=== PATIENT | male | born 1955 | race Caucasian/White ===

== ENCOUNTER 2024-11-22 19:10 | Emergency (ER) | payer MEDICARE, OTHER, SELFPAY ==
[2024-11-22 19:12] VITALS: BP 169/86
--- NOTE | 2024-11-22 21:40 | ED.GENMED ---
History of Present Illness
General
Chief Complaint: DVT/Possible Blood Clot
Time Seen by Provider: 11/22/24 21:35
History of Present Illness
History of Present Illness:
69-year-old male presents the emergency department for evaluation of gradually worsening right leg cramping and swelling for the past several days. Pain is described as achy, not worse with exertion. Denies any recent surgeries or prolonged
immobilization but does admit to being very sedentary for the past several months. He did have a short car trip to [place]. Lasting approximately 2 hours a few weeks ago. Denies any chest pain or shortness of breath. No prior history of DVT
Review of Systems
Review of Systems
Allergies reviewed?: Yes
All Other Systems: ROS reviewed and negative except as documented in HPI and ROS
Phy Exam
Physical Exam
Physical Exam:
GEN: Well appearing, NAD, WDWN
HEENT: Oral mucosa moist, no scleral icterus
Cardiac: Regular rate
Lung: No respiratory distress, no tachypnea
MSK: Severe edema of the entire right lower extremity, dorsalis pedis and posterior tibialis pulses are palpable, capillary refill is less than 2 seconds and sensation to the entire lower extremity is intact
Skin: Good color, no pallor or jaundice, no rashes
Neuro: AO x3, moves all extremities freely
Psych: Calm, cooperative
Course
Orders/Labs/Results
Orders:
Orders
11/22/24 19:17
US Periph Venous LOWER Ext RT Urgent
Comment:
Reason For Exam: pain, swelling
11/22/24 22:18
Apixaban [Eliquis] 10 mg PO NOW STA
11/22/24 22:43
Complete Blood Count/With Diff Urgent
Comprehensive Metabolic Panel Urgent
Abnormal Lab Results
11/22/24
22:43
MCH 32.0 H pg
(27.0-31.0)
Absolute Monos (auto) 0.7 H 10^3/uL
(0.1-0.6)
BUN 24 H mg/dl
(9-20)
Glucose 103 H mg/dl
(70-99)
Total Bilirubin 1.4 H mg/dl
(0.2-1.3)
11/22/24 22:43
11/22/24 22:43
Vital Signs
Initial and Last Documented VS:
Initial Vital Signs
Temp Pulse Resp BP Pulse Ox
97.9 F 82 16 169/86 95
11/22/24 19:12 11/22/24 19:12 11/22/24 19:12 11/22/24 19:12 11/22/24 19:12
Last Documented Vital Signs
Temp Pulse Resp BP Pulse Ox
97.9 F 89 18 152/88 91
11/22/24 19:12 11/22/24 23:30 11/22/24 23:30 11/22/24 23:30 11/22/24 23:30
MDM/Problems Addressed
MDM/Problems Addressed:
Labs are normal. Ultrasound reveals an extensive DVT progressing all the way up to the common femoral. No evidence of phlegmasia cerulea dolens. Start the patient on anticoagulants, counseled on precautions with anticoagulant use, recommend close
primary care follow-up, Provided with information for outpatient family medicine residency clinic
*Critical Care Note
Total Time (30-74mins, 75-104mins- exclusive of procedures): Not Applicable
ED Attending Note
-
Portions of this chart may have been created with voice recognition software.� Occasional wrong word or��sound alike� substitutions may have occurred due to the inherent limitations of voice recognition software.
Discharge Plan
Departure
Patient Disposition: Home (Routine Discharge)
Date of Disposition: 11/22/24
Time of Disposition: 23:11
Patient with high blood pressure during this ER visit?: Yes
Discharge Problem:
Deep vein thrombosis (DVT) of right lower extremity
Instructions: Deep Vein Thrombosis (Blood Clots in the Legs) (DC), How to take anticoagulants safely
Prescriptions:
New
Eliquis 5 mg tablet
5 mg PO BID Qty: 74 0RF
Rx Instructions:
10mg PO BID x 7d then 5mg PO BID
Referrals:
NONE,* [Family Provider] -
Activity Restrictions/Additional Instructions:
[facility]
[address]
[place] [address]
[phone]
YOU NEED A PRIMARY CARE PHYSICIAN [facility] TO MANAGE YOUR BLOOD THINNERS AND YOUR BLOOD PRESSURE
Interventions
Interventions:
*Risk Screen - Suicide Last Done: 11/22/24 19:12
*General Assessment Last Done: 11/22/24 19:12
*Neglect/Abuse Screening Last Done: 11/22/24 19:12
*ED COVID-19 Vaccine History Last Done: 11/22/24 19:12
*Nursing Disposition Last Done: 11/22/24 23:30
ED- Cardiac Assessment Last Done: 11/22/24 22:50
ED-Peripheral Vascular Assessment Last Done: 11/22/24 22:51
Discharge Date and Time
Print Language: RWANDAN
[2024-11-22 22:59] LABS: % Basophils 0.2 % (0-2); % Eosinophils 0.7 % (0-6); % Immature Granulocytes 0.2 % (0-0.5); % Lymphocytes 29.9 % (20.5-51.1); Absolute Eosinophils 0.1 10^3/uL (0-0.7); Absolute Lymphocytes 2.6 10^3/uL (1.2-3.4); Absolute Monocytes 0.7 10^3/uL (0.1-0.6); Absolute Neutrophils 5.3 10^3/uL (1.4-6.5); Hematocrit 45.9 % (39.0-52.0); Mean Corp Hgb Conc. 34.9 g/dL (33.0-37.0); Mean Corpuscular Volume 91.8 fL (80.0-94.0); Mean Platelet Volume 10.2 fL (7.4-10.4); Nucleated Red Blood Cells % 0 % (-); Platelet Count 146 10^3/uL (130-400); White Blood Cell Count 8.8 10^3/uL (4.8-10.8)
[2024-11-22 23:08] LABS: ALT (SGPT) 26 U/L (0-50); AST (SGOT) 24 U/L (17-59); Albumin 4.2 g/dl (3.5-5.0); Alkaline Phosphatase 69 U/L (38-126); Blood Urea Nitrogen 24 mg/dl (9-20); Calcium 9.4 mg/dl (8.4-10.2); Carbon Dioxide 27 mmol/L (22-30); Chloride 101 mmol/L (98-107); Glucose 103 mg/dl (70-99); Potassium 4.2 mmol/L (3.5-5.1); Sodium 135 mmol/L (135-145); Total Bilirubin 1.4 mg/dl (0.2-1.3); Total Protein 6.9 g/dl (6.3-8.2); eGFR > 60.00
[2024-11-22] MEDS: ELIQUIS 10 MG PO (23:22)
[2024-11-22 23:30] VITALS: BP 152/88
== END 2024-11-22 23:53 | disposition home or self-care (01) ==
LOC: EMR 19:10
PROVIDERS: Physician Assistant; EMERGENCY PHYSICIAN Emergency Medicine
DX: I82.411 Acute embolism and thrombosis of right femoral vein (principal); M79.604 Pain in right leg
CPT/HCPCS: 99284; 80053; 85025; 93971

== ENCOUNTER → 2024-12-01 12:58 | Outpatient (REF) | payer MEDICARE, OTHER, SELFPAY | LOC: RAD 12:58 | PROVIDERS: ATTENDING PHYSICIAN Nurse Practitioner Family | DX: I82.401 Acute embolism and thrombosis of unspecified deep veins of right lower extremity (principal); I82.491 Acute embolism and thrombosis of other specified deep vein of right lower extremity | CPT/HCPCS: 93971 ==